=== PATIENT | male | born 1975 | race Caucasian/White ===

== ENCOUNTER 2022-09-10 14:46 | Emergency (ER) | payer SELFPAY ==
[~2022-09-10] VITALS: Ht 172.7 cm; Wt 90.0 kg
[2022-09-10] MEDS ORDERED: IBUPROFEN 400MG TABLET PO ONE (18:45)
[2022-09-10] MEDS ORDERED: ACETAMINOPHEN 325MG TABLET PO ONE (18:45)
[2022-09-10 18:49] VITALS: BP 138/84
[2022-09-10] MEDS ORDERED: IBUP-2028 MT (19:32)
== END 2022-09-10 20:11 | disposition home or self-care (01) ==
LOC: ER 14:54
DX: M79.662 Pain in left lower leg (principal); V49.49XA Driver injured in collision with other motor vehicles in traffic accident, initial encounter; Y93.89 Activity, other specified; Y92.89 Other specified places as the place of occurrence of the external cause; Y99.8 Other external cause status
CPT/HCPCS: 71045; 73030; 99284

== ENCOUNTER 2023-05-17 23:38 | Emergency (ER) | payer MEDICAID ==
[~2023-05-17] VITALS: Ht 170.2 cm; Wt 87.1 kg
[~2023-05-17 23:38] MED LIST: IBUP-2028 MT
[2023-05-17 23:57] VITALS: O2SAT 100
[2023-05-18] MEDS ORDERED: KETOROLAC 60MG/2ML VIAL IM STA (05:22)
[2023-05-18] MEDS ORDERED: METOCLOPRAMIDE HCL 10MG TABLET PO ONE (05:30)
[2023-05-18 05:55] LABS: BASOPHILS % 0.6 % (0.0-2.0); EOSINOPHILS % 0.3 % (0.0-5.0); HEMATOCRIT. 41.8 % (42.0-52.0); HEMOGLOBIN. 14.4 g/dL (14.0-18.0); LYMPHOCYTES % 31.2 % (20.0-50.0); MEAN CORPUSCULAR HEMOGLOBIN 30.5 pg (28.0-32.0); MEAN CORPUSCULAR HGB CONC 34.5 g/dL (31.0-37.0); MEAN CORPUSCULAR VOLUME 88.5 fL (80.0-94.0); MEAN PLATELET VOLUME 10.6 fl (7.4-10.4); MONOCYTES % 6.2 % (2.0-8.0); NEUTROPHILS % 61.7 % (40.0-76.0); PLATELET 249 x1000/uL (130-400); RED BLOOD CELL COUNT 4.73 mill/uL (4.7-6.1); RED CELL DISTRIBUTION WIDTH 12.8 % (11.6-14.6); WHITE BLOOD COUNT 11.9 x1000/uL (4.5-11.0)
[2023-05-18 06:18] LABS: ALANINE AMINOTRANSFERASE 22 IU/L (10-49); ALBUMIN 4.5 g/dL (3.2-4.8); ASPARTATE AMINOTRANSFERASE 12 IU/L (<34); BILIRUBIN TOTAL 0.9 mg/dL (0.1-1.0); CALCIUM 9.3 mg/dL (8.7-10.4); CARBON DIOXIDE 26 mEq/L (21-32); CHLORIDE 98 mEq/L (98-107); CREATININE 0.9 mg/dL (0.6-1.3); POTASSIUM 3.9 mEq/L (3.5-5.1); PROTEIN TOTAL 7.5 g/dL (6.0-8.3); SODIUM 134 mEq/L (136-145); UREA NITROGEN BLOOD 12 mg/dL (9-23)
[2023-05-18 06:25] LABS: PROTHROMBIN TIME 10.9 sec (9.6-11.0)
[2023-05-18 06:28] LABS: GLUCOSE 312 mg/dL (70-105); TROPONIN I HIGH SENSITIVITY < 4 ng/L (3.0-53)
[2023-05-18 08:40] LABS: TROPONIN I HIGH SENSITIVITY < 4 ng/L (3.0-53)
[2023-05-18] MEDS ORDERED: FAMO-135 MT (09:09)
[2023-05-18 09:23] VITALS: BP 138/62; PULSE 90; RESP 16; TEMP 98.2
== END 2023-05-18 09:25 | disposition home or self-care (01) ==
LOC: ER 05-18 00:35
DX: R07.89 Other chest pain (principal); R51.9 Headache, unspecified; R10.9 Unspecified abdominal pain
CPT/HCPCS: 80053; 83690; 85025; 85610; 84484; 36415; 71045; 70450; 74176; 93005; 96372; 99285; J8597; J1885; Z7610